=== PATIENT | male | born 1990 | race Hispanic/Latino ===

== ENCOUNTER → 2024-04-18 14:46 | Outpatient (REF) | payer OTHER, SELFPAY ==
[2024-04-19 07:36] LABS: Glycohemoglobin (HgbA1c) 5.6 % (4.0-5.6)
== END ==
LOC: REG 14:46
PROVIDERS: ATTENDING PHYSICIAN Internal Medicine
DX: Z13.1 Encounter for screening for diabetes mellitus (principal)
CPT/HCPCS: 36415; 83036